=== PATIENT | female | born 1965 | race Caucasian/White ===

== ENCOUNTER → 2016-10-12 | Emergency (ER) | payer MEDICAID | END | disposition home or self-care (01) | LOC: ER 03:12 | DX: R68.84 Jaw pain (principal); M19.90 Unspecified osteoarthritis, unspecified site; Y04.0XXA Assault by unarmed brawl or fight, initial encounter; Y92.89 Other specified places as the place of occurrence of the external cause; Y93.89 Activity, other specified; Y99.8 Other external cause status | CPT/HCPCS: 70486-TC; Z7610 ==

== ENCOUNTER 2019-02-02 17:10 | Emergency (ER) | payer OTHER ==
[~2019-02-02] VITALS: Ht 175.3 cm; Wt 61.2 kg
[2019-02-02 18:14] VITALS: BP 141/94
[2019-02-02] MEDS ORDERED: HYDROCODONE/APAP 7.5/325MG 1 EACH TABLET PO ONE (18:30)
[2019-02-02] MEDS ORDERED: HYDROCODONE/APAP 10/325MG 1 EA TABLET ONE (18:37)
--- NOTE | 2019-02-02 18:48 | NUR ---
NORCO 7.5/325 NOT GIVEN. PT WAS GIVEN NORCO 10/325 GIVEN. SEE EMAR.
--- NOTE | 2019-02-02 18:51 | NUR ---
Patient discharged to home in stable condition. Written and verbal after care instructions given. Patient verbalizes understanding of instruction.
[2019-02-02] MEDS ORDERED: HYDROCODONE/APAP 10/325MG 1 EA TABLET PO ONE (19:00)
== END 2019-02-02 18:51 | disposition home or self-care (01) ==
LOC: ER 17:18
DX: K02.9 Dental caries, unspecified (principal); G89.29 Other chronic pain